=== PATIENT | female | born 1980 | race Hispanic/Latino ===

== ENCOUNTER 2022-03-21 05:34 | Day surgery (SDC) | payer BC ==
[2022-03-20 17:16] VITALS: BP 135/78
[2022-03-20 17:30] LABS: BASOPHILS % (AUTO) 0.6 % (0.0-5.0); EOSINOPHILS % (AUTO) 2.4 % (0.0-8.0); HEMATOCRIT 44.7 % (36-48); LYMPHOCYTES % (AUTO) 25.6 % (21.0-51.0); MEAN CORPUSCULAR HGB CONC 32.2 g/dL (32.0-36.0); MEAN CORPUSCULAR VOLUME 83.9 fL (79-99); MONOCYTES % (AUTO) 10.5 % (3.0-13.0); NEUTROPHILS % (AUTO) 60.7 % (40.0-77.0); PLATELET COUNT (AUTO) 232 K/uL (130-400); RED BLOOD CELL COUNT(AUTO) 5.33 MIL/uL (4.00-5.50); RED CELL DISTRIBUTION WIDTH 13.9 % (11.0-15.5); WHITE BLOOD COUNT (AUTO) 9.4 K/uL (4.8-10.8)
[2022-03-20 17:36] LABS: APPEARANCE,URINE CLEAR (CLEAR); BILIRUBIN,URINE NEGATIVE (NEGATIVE); COLOR,URINE YELLOW (YELLOW); GLUCOSE, URINE (UA) NEGATIVE (NEGATIVE); KETONES,URINE NEGATIVE (NEGATIVE); LEUKOCYTE ESTERASE ,URINE NEGATIVE (NEGATIVE); NITRATE,URINE NEGATIVE (NEGATIVE); OCCULT BLOOD,URINE NEGATIVE (NEGATIVE); PH,URINE 7.5 (5.0-8.0); PROTEIN,URINE NEGATIVE (NEGATIVE); UROBILINOGEN,URINE 0.2 mg/dL (0.2-1.0)
[~2022-03-21] VITALS: Ht 167.6 cm; Wt 79.1 kg
[2022-03-21] MEDS ORDERED: CEFAZOLIN SODIUM 1 GM VIAL IVP SCH (06:00)
[2022-03-21] MEDS ORDERED: LACTATED RINGERS 1000ML 1,000 ML IV ONE (08:19)
[2022-03-21 08:30] VITALS: BP 138/86
== END 2022-03-21 09:00 | disposition home or self-care (01) ==
LOC: DAH 05:34
PROVIDERS: ATTEND Obstetrics & Gynecology
DX: N92.1 Excessive and frequent menstruation with irregular cycle (principal); D25.9 Leiomyoma of uterus, unspecified; F32.A Depression, unspecified; Z82.49 Family history of ischemic heart disease and other diseases of the circulatory system; Z53.8 Procedure and treatment not carried out for other reasons
CPT/HCPCS: 36415; 81003; 84703; 85025; 86850; 86900; 86901; 87635; A4215; A4221; A4222; A4223; A4663; A6260; C9803; J0690; J7120

== ENCOUNTER 2022-04-04 05:43 | Observation (INO) | payer BC ==
[2022-04-03 11:17] LABS: EOSINOPHILS % (AUTO) 2.9 % (0.0-8.0); HEMATOCRIT 42.6 % (36-48); LYMPHOCYTES % (AUTO) 31.1 % (21.0-51.0); MEAN CORPUSCULAR HGB CONC 31.9 g/dL (32.0-36.0); MEAN CORPUSCULAR VOLUME 84.5 fL (79-99); MONOCYTES % (AUTO) 8.7 % (3.0-13.0); PLATELET COUNT (AUTO) 252 K/uL (130-400); RED BLOOD CELL COUNT(AUTO) 5.04 MIL/uL (4.00-5.50); RED CELL DISTRIBUTION WIDTH 13.8 % (11.0-15.5); WHITE BLOOD COUNT (AUTO) 7.6 K/uL (4.8-10.8)
[2022-04-03 11:17] LABS: APPEARANCE,URINE CLEAR (CLEAR); BILIRUBIN,URINE NEGATIVE (NEGATIVE); COLOR,URINE YELLOW (YELLOW); GLUCOSE, URINE (UA) NEGATIVE (NEGATIVE); KETONES,URINE NEGATIVE (NEGATIVE); LEUKOCYTE ESTERASE ,URINE NEGATIVE (NEGATIVE); NITRATE,URINE NEGATIVE (NEGATIVE); OCCULT BLOOD,URINE NEGATIVE (NEGATIVE); PROTEIN,URINE NEGATIVE (NEGATIVE); UROBILINOGEN,URINE 0.2 mg/dL (0.2-1.0)
[2022-04-03 13:45] VITALS: BP 140/82
[2022-04-04] VITALS (24 sets, daily range): BP systolic 115–151; BP diastolic 66–89
[~2022-04-04] VITALS: Ht 167.6 cm; Wt 78.6 kg
[~2022-04-04 05:43] MED LIST: CEFAZOLIN SODIUM 2 GM VIAL IV SCH
[2022-04-04] MEDS ORDERED: CEFAZOLIN SODIUM 1 GM VIAL ONE (07:30)
[2022-04-04] MEDS ORDERED: FAMOTIDINE 20MG VIAL IV ONE (10:37)
[2022-04-04] MEDS ORDERED: HYDROMORPHONE 1 MG INJ ONE (10:37)
[2022-04-04] MEDS ORDERED: MIDAZOLAM HCL 1 MG/ML 2ML VIAL ONE (10:48)
[2022-04-04] MEDS ORDERED: ROCURONIUM BROMIDE 10MG/1ML 5ML VL ONE (10:48)
[2022-04-04] MEDS ORDERED: GLYCOPYRROLATE 1 MG/5 ML SYRINGE ONE (10:49)
[2022-04-04] MEDS ORDERED: FENTANYL CITRATE PF 50 MCG/1 ML 5ML AMP IV ONE (10:49)
[2022-04-04] MEDS ORDERED: PROPOFOL 10 MG/ML 20ML VIAL IV ONE (10:49)
[2022-04-04] MEDS ORDERED: NEOSTIGMINE 5MG/5ML SYR IV ONE (13:19)
[2022-04-04] MEDS ORDERED: MEPERIDINE-PF 25 MG/ML SYG ONE ×2 (13:44→13:55)
[2022-04-04] MEDS ORDERED: MEPERIDINE-PF 75 MG/ML SYG ONE (15:36)
[2022-04-04] MEDS: PROMETHAZINE HCL 25 MG/ML 1ML AMPULE IM PRN ×2 (15:42→20:29)
[2022-04-04] MEDS: MEPERIDINE-PF 75 MG/ML SYG IM PRN ×2 (15:43→20:30)
[2022-04-04] MEDS ORDERED: BISACODYL 10 MG SUPP.RECT RC PRN (16:00)
[2022-04-04] MEDS ORDERED: PROMETHAZINE HCL 25 MG/ML 1ML AMPULE IM PRN (16:00)
[2022-04-04] MEDS ORDERED: ONDANSETRON 4MG INJ IVP PRN (16:00)
[2022-04-04] MEDS ORDERED: IBUPROFEN 600 MG TABLET PO PRN (16:00)
[2022-04-04] MEDS ORDERED: DOCUSATE SODIUM 100 MG CAP PO PRN (16:00)
[2022-04-04] MEDS: DEXTROSE 5 %-0.45 % NACL 1,000 ML IV PRN ×2 (16:10→23:27)
[2022-04-04] MEDS: ACETAMINOPHEN WITH CODEINE 1 TAB TAB PO PRN (18:45)
[2022-04-05] MEDS: SIMETHICONE 80 MG TAB.CHEW PO PRN ×2 (03:15→08:54)
[2022-04-05] MEDS: ACETAMINOPHEN WITH CODEINE 1 TAB TAB PO PRN ×2 (03:16→07:34)
[2022-04-05 04:12] VITALS: BP 128/83
[2022-04-05] MEDS ORDERED: IBUPROFEN 800 MG TAB PO PRN (04:30)
[2022-04-05] MEDS ORDERED: HYDROCODONE/ACETAMINOPHEN 5/325 MG TAB PO PRN (04:30)
[2022-04-05 06:46] LABS: HEMATOCRIT 35.8 % (36-48); MEAN CORPUSCULAR HEMOGLOBIN 26.6 pg (27.0-33.0); MEAN CORPUSCULAR HGB CONC 32.1 g/dL (32.0-36.0); MEAN CORPUSCULAR VOLUME 82.9 fL (79-99); RED BLOOD CELL COUNT(AUTO) 4.32 MIL/uL (4.00-5.50); RED CELL DISTRIBUTION WIDTH 13.8 % (11.0-15.5); WHITE BLOOD COUNT (AUTO) 12.6 K/uL (4.8-10.8)
[2022-04-05 07:27] VITALS: BP 132/78
[2022-04-05] MEDS ORDERED: IBUPROFEN 600 MG TABLET PO PRN (10:00)
[2022-04-05] MEDS ORDERED: ACET-2079 PO (10:13)
[2022-04-05 11:29] VITALS: BP 126/77
== END 2022-04-05 15:10 | disposition home or self-care (01) ==
LOC: DAH 05:43 → WSH 05:44
PROVIDERS: ADMIT Obstetrics & Gynecology; ATTEND Obstetrics & Gynecology
DX: N92.1 Excessive and frequent menstruation with irregular cycle (principal); Z20.822 Contact with and (suspected) exposure to COVID-19; D25.1 Intramural leiomyoma of uterus; K46.9 Unspecified abdominal hernia without obstruction or gangrene; R10.2 Pelvic and perineal pain; Z79.899 Other long term (current) drug therapy; Z98.890 Other specified postprocedural states
CPT/HCPCS: 84703; 85025; 86850; 86900; 86901; 87426; 81003; 36415 ×2; 58554; 57268; 96372; 85027; A6260; G0378 ×29; G0379; J7030; A4351; A4344; A4215 ×2; J3490 ×3; J3010; J0690; J1170; J2710; J2550; J2250; J2704; J2175 ×4; C1769 ×2; A4649 ×3; A4452; A4930; A4223; A4222; A4221; A4663; A4600; A4510